=== PATIENT | female | born 1940 | race Hispanic/Latino ===

== ENCOUNTER 2019-04-07 17:47 | Emergency (ER) | payer MEDICARE, OTHER ==
[2019-04-07] MEDS ORDERED: Adacel (T-DAP) 0.5 ML SYRINGE ONE (18:02)
[2019-04-07] MEDS ORDERED: HYDROcodone/Acetaminophen 5/325 mg Tablet ONE (18:35)
--- NOTE | 2019-04-07 19:20 | RAD ---
CERVICAL SPINE SERIES FOUR VIEWS: History: Fall. FINDINGS: The bones are demineralized. Vertebral bodies are normal in height. There is degenerative disc narrow ing at C4-5, C5-6, and C6-7. Facets are in normal alignment. No soft tissue swelling. No fracture is identified. IMPRESSION: Arthritic changes of the spine. Diffuse bony demineralization. No fracture. POS: [facility]
--- NOTE | 2019-04-07 19:22 | CT ---
CT OF BRAIN PERFORMED WITHOUT CONTRAST ENHANCEMENT: History: Fall with head injury, hit back of head. Comparison: 05-31-17 FINDINGS: There is generalized ventricular and sulcal prominence. There are no signs of intracerebral hemorrhag e or any acute extraaxial fluid collections. The mastoid air cells and visualized sinuses are clear. IMPRESSION: No acute intracranial abnormalities. POS: [facility]
--- NOTE | 2019-04-07 19:28 | RAD ---
LUMBAR SPINE SERIES THREE VIEWS: History: Fall with back pain. FINDINGS: The bones are very demineralized. Lumbar vertebral bodies are normal in height. There is an age indet erminate superior endplate fracture of T12. This could be old. There are some osteophytic changes see n associated with it. Marked scoliotic change, convex to the left, and severe arthritic change of the spine are noted. IMPRESSION: 1. Severe bony demineralization. 2. Age indeterminate superior endplate compression changes of T12. POS: [facility]
--- NOTE | 2019-04-07 19:47 | RAD ---
AP PELVIS: History: Fall with pelvic pain. FINDINGS: The bones are demineralized. Arthritic changes of the spine are noted. Post-operative changes of the right hip are present. No fractures of the bony pelvic ring are seen. IMPRESSION: No evidence of any acute injury. POS: [facility]
[2019-04-07] MEDS ORDERED: Lidocaine 1% (PF) 30 ML VIAL ONE (19:55)
== END 2019-04-07 20:17 | disposition home or self-care (01) ==
LOC: NAV ERS 17:47
DX: S01.01XA Laceration without foreign body of scalp, initial encounter (principal); S30.0XXA Contusion of lower back and pelvis, initial encounter; E11.9 Type 2 diabetes mellitus without complications; M19.90 Unspecified osteoarthritis, unspecified site; Z79.899 Other long term (current) drug therapy; Z79.82 Long term (current) use of aspirin; W01.198A Fall on same level from slipping, tripping and stumbling with subsequent striking against other object, initial encounter
CPT/HCPCS: 12001; 70450; 72050; 72100; 72170; 90471; 90715; J2001

== ENCOUNTER 2019-04-14 12:57 | Emergency (ER) | payer MEDICARE, OTHER | END 2019-04-14 13:10 | disposition home or self-care (01) | LOC: EDBD 12:57 → NAV ERS 12:57 | DX: S01.01XD Laceration without foreign body of scalp, subsequent encounter (principal); E11.9 Type 2 diabetes mellitus without complications; M19.90 Unspecified osteoarthritis, unspecified site; Z85.3 Personal history of malignant neoplasm of breast; Z79.82 Long term (current) use of aspirin; Z79.899 Other long term (current) drug therapy ==